=== PATIENT | male | born 1950 | race Caucasian/White ===

== ENCOUNTER 2025-10-29 17:06 | Inpatient (IN) ==
--- NOTE | 2025-10-29 20:31 | History & Physical Report ---
Date of Service October 29, 2025 Assessment & Plan (1) Diverticulitis of colon with perforation: (2) Colonic mass: (3) Lesion of lumbar spine: Plan Pt is a 75 yo male with a past medical hx of HLD only who presents as a direct transfer from [facility] in [place] for diverticulitis with small perforation and question of underlying neoplasm along with lytic bone lesion at L1 on 10/29. #Diverticulitis, complicated - CT abd/pelvis from OSH noted "severe colitis involving sigmoid colon, likely with a small perforation. Underlying neoplasm suspected." - thankfully, on admission pt is feeling well and stable - will do CTA chest to look for PE given suspected new metastatic cancer dx/other lesions - blood cx obtained by OSH on 10/29 ~ 17:00 -> to f/u on these - given dose of zosyn at OSH, will continue this - will do LR 125/hr overnight (2 bags) - pain meds; tylenol 1000mg IV q8h Prieto, morphine 1 mg q4h for breakthrough - general surgery consulted; appreciate recs #Possible colon mass - will do CTA chest to look for PE given suspected new metastatic cancer dx/other lesions - does have family hx of prostate, liver, and pancreas cancer - will hold off on oncology consult until further workup done - general surgery consulted #Lytic bone lesion at L1 - CT abd/pelvis from OSH noted "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." - pt denies significant back pain the last few months, maybe occasional soreness - does have family hx of prostate, liver, and pancreas cancer - will treat pain prn as above - ortho spine consulted, question if a biopsy can maybe be done VTE: hold overnight pending surgery eval in the morning/possible surg Admission and Anticipated Discharge Date Admission Date: October 29, 2025 History of Present Illness Chief Complaint: Diverticulitis with perf, colon mass Primary Care Provider: Los Villalta PA-C Pt is a 75 yo male with a past medical hx of HLD only who presents as a direct transfer from [facility] in [place] for diverticulitis with small perforation and question of underlying neoplasm along with lytic bone lesion at L1 on 10/29. On admission, pt is feeling relatively well. Pain level is a 2/10. He states symptoms started last weekend Saturday or Saturday with mild pain. He notes a hx of irritable bowel and states that he suspected he was constipated so he took 2 pills of Dulcolax on Saturday and Saturday and subsequently had diarrhea. He states he tries not to use laxatives because he knows he has significant diarrhea with them but wanted to trial it to see if it would help the pain. The stools were initially watery as expected but as the week went on contained more mucus. No blood in the stool. No nausea or vomiting. Abdominal pain ramped up on Saturday after taking the laxative but got more severe yesterday into today. He also has had decreased appetite the last few days. No prior hx diverticulitis. Last colonoscopy was maybe 6-7 years ago and was wnl per pt. Family hx of irritable bowel (unsure what kind) in his mom, liver cancer in his mom, pancreatic cancer in his dad, and prostate cancer in his brother. Lives at home with his and step-son in a 2 story home. No recent falls. He is active. He denies back pain. While at [facility] he received zosyn at 17:30. CT abd/pelvis with contrast; "severe colitis involving sigmoid colon, likely with a small perforation. Underlying neoplasm suspected. 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 OSH labs; lipase 34, lactic acid 0.7, Alk phosp 82, AST 12, ALT 24, Cr 0.9, Na 136, K 3.5 Ca 8.8, Albumin 2.6, AG 8, WBC 15, hemoglobin 14.3, platelet 283 Allergies Allergy/AdvReac Type Severity Reaction Status Date / Time No Known Allergies Allergy Verified 06/02/25 11:39 Home Medications Medication Instructions Recorded Confirmed Type famotidine 40 mg tablet 40 mg PO DAILY 06/02/25 06/02/25 History rosuvastatin 10 mg tablet 10 mg PO HS 06/02/25 10/30/25 History escitalopram oxalate 10 mg tablet 10 mg PO DAILY 10/30/25 10/30/25 History fluticasone propionate 50 1 spray intranasal HS 10/30/25 10/30/25 History mcg/actuation nasal spray,suspension Past Med/Surg History Problem List (Updated 10/29/25 @ 21:57 by Sandra E Breindel, DO) Lesion of lumbar spine Colonic mass Diverticulitis of colon with perforation Colitis Medical History Seasonal allergies Asthma Polyp of nasal cavity Chronic ethmoidal sinusitis Hypertrophy of nasal turbinates Chronic sphenoidal sinusitis Chronic maxillary sinusitis Surgical History S/P sinus surgery S/P hernia repair Family History Father Pancreatic cancer Mother Liver cancer Social History Smoking Status: Former smoker Tobacco Type: Cigarettes packs per day: 1; Smoking End Date: 40 years; Second Hand Exposure: No; Do You Dip or Chew Tobacco: No; Hx Alcohol Use: No Hx Substance Use: No Preferred Language: Luxembourgish Communication Ability: Effective Educational Recruiter Required: No Beliefs That Will Affect Care: None marital status: Current Living Situation: Spouse current occupational status: employed and retired current occupation: Works Part-Time Feels Safe at Home: Yes Safety Concerns: Feels Safe At This Time caffeine: Yes Dental Care, Regularly: Yes Gender Identity: Male Assistive Devices: Glasses Review of Systems Review of Systems: Per HPI. Physical Exam Physical Exam: General: Alert and oriented, no acute distress, very pleasant HEENT: Normocephalic, moist oral mucosa, Cardio: Regular rate and rhythm, no murmur, Resp: Lungs clear to auscultation b/l, no wheezes or rhonchi, GI: Distended but soft, faint bowel sounds Skin: Warm, pink, dry, Supervising Physician Co-Signing Physician Notes Attending addendum: I have physically seen this patient, have supervised the medical residents activities, and agree with the H&P unless as otherwise noted. Assessment and Plan: The patient is a 75-year-old male with past medical history including hyperlipidemia, who is transferred from [facility] emergency department to [facility] due to CT scan revealing diverticulitis with perforation, and a new lytic bone lesion at L1 on 10/29. Diverticulitis with perforation- CT scan abdomen pelvis from outside hospital revealed severe colitis involving sigmoid colon, likely small perforation. Underlying neoplasm suspected. Continue Zosyn 4.5 g IV every 8 hours, begun at the outside hospital. N.p.o. LR at 125 mL/h x 2 L Acetaminophen 1 g IV every 8 hours as needed for mild pain or fever Morphine sulfate 1 mg IV every 4 hours as needed for breakthrough pain Question of underlying colon mass Consult general surgery Lytic L1 invasion- As noted on CT abdomen pelvis from outside hospital Family history of prostate, liver and pancreatic cancer Consult orthopedic spine surgery, as noted 50% height loss of vertebral body. Resident Activity Tracking Resident Involvement: Resident Care Provided Care Provided: Adult Hospital Medicine
[2025-10-29] MEDS ORDERED: MELATONIN 3 MG TAB PO PRN (20:45)
[2025-10-29] MEDS ORDERED: ONDANSETRON INJ 2 MG/ML 2 ML VIAL IV PRN (20:45)
--- NOTE | 2025-10-29 20:54 | Surgery Consultation ---
Date of Consultation October 29, 2025 Assessment & Plan (1) Colitis: Patient has been admitted on the hospitalist service. From a surgical perspective recommend the following: Provide analgesics Provide antiemetics Keep patient n.p.o. Hydrate the patient with intravenous fluids Patient has received antibiotics in form of Zosyn at his previous facility would recommend continuing antibiotics Follow serial labs I did discuss with the patient that he does have colitis with what appears to be a perforation. I discussed with the patient that it would be preferable to not operate on the patient at this time as this would likely require at least a temporary colostomy and also be preferable to have an up-to-date colonoscopy as we are unsure if the patient has any malignant lesions in his colon that may have contributed to his perforation. It also appears as though the patient may have a lytic lesion/pathologic fracture of one of his vertebrae and the question is whether or not tissue can be obtained from this area that would help ascertain the diagnosis which will help guide the decision about potential abdominal surgery. I also explained to the patient that if he does clinically deteriorate an emergency operation may be required but I do not feel that this is required at this time At the time of my interview the patient was noted to be nontoxic-appearinghe was normotensive without tachycardia or fever Supervising Physician Co-Signing Physician Notes This case has been discussed with the surgical PA. I agree with this plan. History of Present Illness Reason for Consultation: Abdominal pain Attending Physician: Oliva Sommers MD History of Present Illness This is a 75-year-old male who presented to the hospital at [facility] in [place], [place] secondary to lower abdominal pain for approximately 5 days. The patient notes that the pain is across his lower abdomen in a bandlike fashion. He has never had such pain before. He admits he did not take his temperature at home but he did feel feverish with chills previously. He has not had any nausea or vomiting. Patient says that up until the time he had pain he had a normal appetite without any weight loss. He says that he had a colonoscopy in the past (he believes was greater than 5 years ago) and he notes that there is no concerning pathology noted on this study. He says that he did have a mucousy bowel movement earlier this morning but has not had any bright blood per rectum or hematochezia. He also has not had any melanotic stools. He notes that he has never had any prior abdominal surgeries with the exception of bilateral inguinal herniorrhaphies. He notes his most recent oral intake was at approximately 11:00 AM this morning. He has not had any falls or head injuries. He notes that when he feels well he leads a fairly active lifestyle. While at the hospital in the [place], the patient did have labs and imaging which I was able to review. CBC revealed white blood cell count was elevated 15.4. His hemoglobin and hematocrit 14.3 and 41.1. Platelet count was 283,000. Chemistry profile showed sodium and potassium are 136 and 3.5. BUN and creatinine were 15 and 0.9. Lactic acid level was not elevated at 0.7. Patient did undergo a CT scan of the abdomen pelvis that showed the patient had a 15 cm segment of sigmoid colon that appeared to be inflamed with some pockets of free air along the rectosigmoid junction. Patient was also noted to have a pathologic appearing compression fracture at the L1 vertebrae with concern for a lytic lesion. At the time of my interview the patient was resting comfortably in bed and he was in no distress. Allergies Allergy/AdvReac Type Severity Reaction Status Date / Time No Known Allergies Allergy Verified 06/02/25 11:39 Home Medications Medication Instructions Recorded Confirmed Type fluticasone propionate 50 See Rx Instructions .Route 05/06/25 06/02/25 Rx mcg/actuation nasal .COMPLEX #16 grams spray,suspension famotidine 40 mg tablet 40 mg PO DAILY 06/02/25 06/02/25 History rosuvastatin 10 mg tablet 10 mg PO DAILY 06/02/25 06/02/25 History Patient History Medical History Seasonal allergies Asthma Polyp of nasal cavity Chronic ethmoidal sinusitis Hypertrophy of nasal turbinates Chronic sphenoidal sinusitis Chronic maxillary sinusitis Surgical History S/P sinus surgery S/P hernia repair Family History Father Pancreatic cancer Mother Liver cancer Social History Smoking Status: Former smoker Tobacco Type: Cigarettes packs per day: 1; Smoking End Date: 40 years; Second Hand Exposure: No; Do You Dip or Chew Tobacco: No; Hx Alcohol Use: No Hx Substance Use: No Preferred Language: Upper Sorbian Communication Ability: Effective Agriculture Technician Required: No Beliefs That Will Affect Care: None marital status: Current Living Situation: Spouse current occupational status: employed and retired current occupation: Works Part-Time Feels Safe at Home: Yes Safety Concerns: Feels Safe At This Time caffeine: Yes Dental Care, Regularly: Yes Gender Identity: Male Assistive Devices: Glasses Review of Systems Review of Systems: All systems reviewed & are unremarkable except as noted in HPI & below Physical Exam Constitutional: WD/WN, vitals as above Eyes: Wears glasses ENMT: Ears: no hearing impairment Mouth: no oropharynx abnormality Neck: trachea midline Respiratory: normal respiratory effort; no respiratory distress and no labored breathing Cardiovascular: Rate/Rhythm: regular rate and regular rhythm Vessels: dorsalis pedis pulses present Gastrointestinal (Abdomen): Abdomen is noted to have mild distention. There is no signs of peritonitis such as rebound tenderness, guarding, or abdominal rigidity. Patient did have pain with palpation that appear to be greatest in the left lower quadrant. I did not appreciate any masses or hernias. Musculoskeletal: No calf tenderness Skin: no rashes Neurologic: moves all extremities Psychiatric: A+Ox3, euthymic affect PG Care Time/CCT Total # of Minutes Spent Total Time Spent with Patient: Total time spent is greater than 50% in coordination of care (as documented) at patient's floor/unit and/or counseling patient: Coding Level of Care Code 97898 INT INP/OBS CARE 3/75MIN Diagnoses Colitis K52.9
[2025-10-29] MEDS: LACTATED RINGER'S 1,000 ML IV SCH (21:01)
[2025-10-29] MEDS ORDERED: MoRPHine SULFATE 2 MG/ML CARP IV PRN (21:53)
[2025-10-29] MEDS: ACETAMINOPHEN 1,000 MG/100 ML VIAL IV SCH (23:23)
[2025-10-30] MEDS: PIPERACILLIN/TAZOBACTAM 4.5 GM/100 ML BAG IV SCH ×2 (00:50→20:29)
[2025-10-30 06:36] LABS: Hematocrit (blood only) 36.4 % (42.0-52.0); Hemoglobin 12.3 g/dL (14.0-18.0); Immature Granulocytes # (auto) 0.09 K/uL (0.01-0.20); Immature Granulocytes % (auto) 0.7 %; Mean Corpuscular Hemoglobin 30.4 pg (25.0-34.0); Mean Corpuscular Volume 89.9 fL (80.0-100.0); Platelet Count 263 K/uL (130-400); RDW Standard Deviation 43.8 fL (36.4-46.3); Red Blood Count 4.05 M/uL (4.70-6.10); White Blood Count 13.71 K/ul (4.8-10.8)
[2025-10-30 08:24] LABS: Albumin Level 3.2 gm/dl (3.4-5.0); Anion Gap 10.0 (3-11); Bilirubin,Total 1.4 mg/dl (0.2-1.0); Calcium 8.6 mg/dl (8.6-10.3); Carbon Dioxide 25.0 mmol/L (21-32); Chloride 105.0 mmol/L (98-107); Potassium 4.1 mmol/L (3.5-5.1); Sodium 140.0 mmol/L (136-145)
--- NOTE | 2025-10-30 08:24 | Electrocardiogram Report ---
Test Reason : Blood Pressure : */* mmHG Vent. Rate : 86 BPM Atrial Rate : 86 BPM P-R Int : 176 ms QRS Dur : 100 ms QT Int : 370 ms P-R-T Axes : -8 -9 -12 degrees QTcB Int : 442 ms Normal sinus rhythm Normal ECG No previous ECGs available Confirmed by Niles Basurto ([id number]) on 10/30/2025 8:24:09 AM Referred By: Oliva Sommers Confirmed By: Niles Basurto
[2025-10-30 08:30] LABS: Alanine Aminotransferase 11.0 U/L (7-52); Albumin Globulin Ratio 1.0 (0.9-2); Alkaline Phosphatase 69.0 U/L (34-104); Blood Urea Nitrogen 15.0 mg/dl (6-23); Creatinine Clr Calc Pharmacy 97.8 ml/min; Globulin 3.3 gm/dl (2.5-4.0); Glucose 106.0 mg/dl (70-99(Fasting)); Total Protein 6.5 gm/dl (6.0-8.3)
[2025-10-30] MEDS: D5W AND NSS 1,000 ML IV SCH (08:59)
[2025-10-30] MEDS: OPTIRAY 320 125ml IV ONE (11:52)
--- NOTE | 2025-10-30 12:54 | Hospitalist Progress Note ---
Date of Service October 30, 2025 Assessment & Plan (1) Diverticulitis of colon with perforation: Plan: Currently n.p.o. with IV fluids. Appreciate general surgery consultation and recommendations. Continue intravenous Zosyn, day 2. (2) Colonic mass: Plan: Eventually will need colonoscopy and biopsy. CEA level is pending (3) Lesion of lumbar spine: Plan: Apparent lytic lesion seen involving L1 on imaging. This will need further evaluation. He is currently asymptomatic however Plan To be determined Admission and Anticipated Discharge Date Admission Date: October 29, 2025 Subjective Alert and oriented. No distress. He remains n.p.o. on IV fluids and IV Zosyn. Appreciate surgery consultation and recommendations. Chest CTA report is pending. IV fluids have been tapered down. Review of Systems 2 Review of Systems: Constitutionalno fever or chills ENTno blurred vision, no double vision, no epistaxis, no sore throat Respiratoryno cough, no wheezing, no shortness of breath Cardiacno palpitations, no chest pain, no syncope [place]udonne nausea, vomiting, diarrhea, melena, hematochezia GUno urinary retention, no urinary incontinence, no dysuria, no hematuria Musculoskeletalno joint pain, no muscle tenderness Skinno bruising, no rashes, no pruritus Neurono isolated weakness, no paresthesia, no weakness Psychno depression, no anxiety Physical Exam 2 Physical Exam: General-alert and oriented x3, no fever, no chills HEENT-head atraumatic and normocephalic, pupils equal and reactive to light, extraocular muscles intact Neck-no lymphadenopathy or thyromegaly, trachea midline Chest-clear to auscultation. No rales, wheezing or rhonchi Cardiac-regular rate and rhythm, normal S1 and S2 Abdomen-bowel sounds are hypoactive but present. Tenderness to palpation in the lower midline and left lower quadrant. No rebound or guarding. Nondistended Extremities-no cyanosis, clubbing, or edema Neuro-cranial nerves II through XII intact, motor and sensory function within normal limits, strength symmetrical, no focal deficits Psych-normal affect, normal mood Results & Data Results & Data Vital Signs (Past 12 Hours) Vital Signs Temp Pulse Pulse Resp BP Pulse Ox O2 Del Method 10/30/25 12:28 36.5 C 75 18 147/81 H 96 Room Air 10/30/25 12:08 72 10/30/25 09:29 36.4 C L 67 18 128/77 97 Room Air 10/30/25 02:19 36.7 C 74 18 119/70 95 Room Air Laboratory Results 10/30/25 05:29 10/30/25 05:29 PG Care Time/CCT Total # of Minutes Spent Total Time Spent with Patient: Total time spent is greater than 50% in coordination of care (as documented) at patient's floor/unit and/or counseling patient: Coding Level of Care Code 26399 SUB INP/OBS CARE MIN Diagnoses Diverticulitis of colon with perforation K57.20 Colonic mass K63.89 Lesion of lumbar spine M89.9
--- NOTE | 2025-10-30 13:22 | Surgery Progress Note ---
Date of Service October 30, 2025 Assessment & Plan (1) Colitis: Plan Pt with evidence for sigmoid colitis, reading radiologist questions a malignant process due to an incidentally identified lytic appearing lumbar fracture as well. Awaiting image availability in PACS for review. For now, no acute surgical intervention Continue IV abx at this time IVF Ambulate as tolerated and recommend he be started on chemical DVT ppx If pt continues to improve to appropriate for discharge, he will need an outpatient colonoscopy Admission and Anticipated Discharge Date Admission Date: October 29, 2025 Subjective I have seen this pt this am on his way to CT for CTA ordered by medicine. Pt denies nausea, vomiting or abdominal pain this am. States he feels better than when he came in. Physical Exam Constitutional: average body habitus; not ill appearing, not disheveled, not in distress and not diaphoretic Respiratory: normal respiratory effort; no respiratory distress, no labored breathing and does not use accessory muscles Cardiovascular: Rate/Rhythm: regular rate; not tachycardic Gastrointestinal (Abdomen): Inspection/Auscultation: abdomen normal to inspection; abdomen not distended Percussion/Palpation: + abdomen tender (minimal TTP lower abdomen) and abdomen soft; no guarding Results & Data Vital Signs (Past 12 Hours) Vital Signs Temp Pulse Pulse Resp BP Pulse Ox O2 Del Method 10/30/25 12:28 36.5 C 75 18 147/81 H 96 Room Air 10/30/25 12:08 72 10/30/25 09:29 36.4 C L 67 18 128/77 97 Room Air 10/30/25 02:19 36.7 C 74 18 119/70 95 Room Air PG Care Time/CCT Total # of Minutes Spent Total Time Spent with Patient: Total time spent is greater than 50% in coordination of care (as documented) at patient's floor/unit and/or counseling patient: Coding Level of Care Code 50580 SUB INP/OBS CARE 12/26MIN Diagnoses Colitis K52.9
--- NOTE | 2025-10-30 14:16 | CT Scan Report ---
INDICATION: Chest pain, shortness of breath COMPARISON: None TECHNIQUE: CT images of the chest were obtained. 3D CT angiogram was generated from the axial data set. Dose reduction according to patient size and/or automated exposure control techniques have been utilized for this exam. MIP (Maximum Intensity Pixel) images were utilized. FINDINGS: AXIAL IMAGES: LUNGS: No focal consolidations. No worrisome pulmonary nodules. PLEURA: There is no pleural effusion. MEDIASTINUM/SILKE: No significant lymphadenopathy. CARDIAC: The heart is normal in size. Coronary artery calcifications. AORTA: No aneurysm. LIMITED ABDOMEN: Normal size adrenal glands. Cholelithiasis.Left renal cortical cyst measures 1.6 cm. BONES: Bony thorax is intact. OTHER: Unremarkable. CTA: No evidence of pulmonary embolism. IMPRESSION: No CT evidence of pulmonary embolism. No focal consolidations. Cholelithiasis. Electronically signed by Oneal Dallas 10-30-2025 2:13 PM
[2025-10-30] MEDS ORDERED: LORazepam Inj 0.5 MG in SYRINGE 0.25 ML IV PRN (17:04)
[2025-10-30] MEDS ORDERED: Nursing to Pharmacy Communication SCH (17:30)
[2025-10-30] MEDS: FLUTICASONE PROPIONATE NA SPR 16 GM BTL SCH (20:28)
--- NOTE | 2025-10-31 05:14 | Billing Data ---
Date of Service October 31, 2025 Coding Level of Care Code 57210 INT INP/OBS CARE
[2025-10-31 06:44] LABS: Hematocrit (blood only) 35.2 % (42.0-52.0); Hemoglobin 11.9 g/dL (14.0-18.0); Immature Granulocytes # (auto) 0.05 K/uL (0.01-0.20); Immature Granulocytes % (auto) 0.5 %; Mean Corpuscular Hemoglobin 30.4 pg (25.0-34.0); Mean Corpuscular Volume 90.0 fL (80.0-100.0); Platelet Count 291 K/uL (130-400); RDW Standard Deviation 43.9 fL (36.4-46.3); Red Blood Count 3.91 M/uL (4.70-6.10); White Blood Count 9.49 K/ul (4.8-10.8)
[2025-10-31 07:23] LABS: Alanine Aminotransferase 12.0 U/L (7-52); Albumin Globulin Ratio 0.9 (0.9-2); Albumin Level 3.0 gm/dl (3.4-5.0); Alkaline Phosphatase 71.0 U/L (34-104); Anion Gap 7.0 (3-11); Bilirubin,Total 0.8 mg/dl (0.2-1.0); Blood Urea Nitrogen 11.0 mg/dl (6-23); Calcium 8.5 mg/dl (8.6-10.3); Carbon Dioxide 29.0 mmol/L (21-32); Chloride 104.0 mmol/L (98-107); Creatinine Clr Calc Pharmacy 101.9 ml/min; Globulin 3.5 gm/dl (2.5-4.0); Glucose 108.0 mg/dl (70-99(Fasting)); Potassium 3.5 mmol/L (3.5-5.1); Sodium 140.0 mmol/L (136-145); Total Protein 6.5 gm/dl (6.0-8.3)
--- NOTE | 2025-10-31 09:48 | Surgery Progress Note ---
<Statement entered by Zain Hawk, - 10/31/25 18:22> I have seen and examined this patient with the surgical PA. I agree with this plan. Date of Service October 31, 2025 Assessment & Plan (1) Diverticulitis of colon with perforation: (2) Colitis: (3) Colonic mass: Plan Patient's abdominal pain has improved greatly, white blood cell count has trended to normal, and he has remained afebrile on Zosyn. We feel it be reasonable to try to advance his diet to clear liquids and continue to observe his white blood cell count, serial abdominal exams, and temps. Patient is concerned about his lytic lesion to the lumbar spine, awaiting orthopedics by spine consult recommendations, but I explained to the patient that we will eventually need tissue diagnosis to rule in or rule out neoplasm, from the lytic lesion to the spine and/or the colon. I would recommed reaching out to interventional radiology tomorrow to discuss if they are able to perform a biopsy of the lytic lesion to the spine. After his current bout of acute colitis has resolved he will need a formal colonoscopy and possible biopsy. Patient expressed understanding. Remainder of his care per the primary hospitalist team, general surgery will continue to follow, would recommend pharmacologic DVT prophylaxis with heparin or Lovenox due to the concerns for possible neoplasm. Admission and Anticipated Discharge Date Admission Date: October 29, 2025 Subjective Patient currently states that he feels well, states that his abdominal pain has nearly resolved, but is still present, mild, localized to the lower quadrants bilaterally. Patient states that his abdominal pain seemed worse with movement and with straining to void, but denies any dysuria or hematuria. Patient has remained n.p.o. for bowel rest, he denies any nausea or vomiting, does admit to passing flatus but no bowel movement. Patient has remained hemodynamically sta ble, afebrile, nontachycardic, white blood cell count has trended to normal, today is 9.4, down from yesterday at 13.7, on Zosyn day 3. Patient does have multiple questions regarding his lytic lesion to his lumbar spine, I explained that we must obtain a tissue biopsy in order to rule in or rule out metastatic disease Physical Exam Physical Exam: Gen: Awake and alert, resting comfortably in bed in NAD CV: RRR PULM: non-labored breathing Abd: Abd soft, obese, non-tender, non-distended ext: no edema to bilateral lower ext, SCDs in place, non-tender, feet warm and well perfused Results & Data Vital Signs (Past 12 Hours) Vital Signs Temp Pulse Pulse Resp BP Pulse Ox O2 Del Method 10/31/25 08:41 36.6 C 67 18 139/85 94 Room Air 10/31/25 03:47 36.5 C 68 19 123/80 95 Room Air 10/30/25 23:40 36.6 C 70 16 141/75 H 95 Room Air 10/30/25 23:00 77 PG Care Time/CCT Total # of Minutes Spent Total Time Spent with Patient: Total time spent is greater than 50% in coordination of care (as documented) at patient's floor/unit and/or counseling patient:35 minutes Coding [place] [address] SUB INP/OBS CARE 2/35MIN Patient Type Established Medical Decision Making Moderate Complexity Diagnoses Diverticulitis of colon with perforation K57.20 Colitis K52.9 Colonic mass K63.89
--- NOTE | 2025-10-31 12:05 | CT Scan Report ---
EXAM: CT Abdomen and Pelvis Without Intravenous Contrast INDICATION: Perforated diverticulitis TECHNIQUE: Axial computed tomography images of the abdomen and pelvis without intravenous contrast. Sagittal and coronal reformatted images were created and reviewed. This CT exam was performed using one or more of the following dose reduction techniques: automated exposure control, adjustment of the mA and/or kV according to patient size, and/or use of iterative reconstruction technique. COMPARISON: No relevant prior studies available. FINDINGS: Limitations: None. Lung bases: No abnormality noted. Pleural space: No visualized pleural effusion or pneumothorax. Heart: No abnormality noted. Mediastinum: No abnormality noted. ABDOMEN: Liver: Lack of intravenous contrast limits detection of some masses. No abnormality noted. Gallbladder and bile ducts: The gallbladder is distended and contains at least 3 stones. No biliary gas or ductal dilatation. Pancreas: There is a 1.1 x 2.8 cm tubular hypodensity in the uncinate process. This appears to track to and may be contiguous with the common bile duct. No pancreatic inflammation. No visible mass. No pancreatic calcification or gas. Spleen: No acute abnormality noted. Adrenals: No acute abnormality noted. Kidneys and ureters: Simple left renal cysts. No follow-up of these simple cysts is necessary. Right kidney appears normal. Stomach and bowel: Extensive colonic diverticulosis noted most numerous in the sigmoid colon. Approximate 10 cm segment of moderately inflamed and thickened sigmoid colon preferentially extending into the mesentery. No evidence of perforation or obstruction. PELVIS: Appendix: Well seen and appears normal. Bladder: The urinary bladder is incompletely distended and appears moderately thickened and inflamed. It is displaced to the right by the phlegmon and sigmoid colon. Reproductive: No abnormalities noted. ABDOMEN and PELVIS: Intraperitoneal space: Small amounts of fluid in the pelvis. No organized or drainable collection. No free air. Bones/joints: No acute changes. Soft tissues: Fat-containing right inguinal hernia noted. Vasculature: No abdominal aortic aneurysm. Lymph nodes: No pathologically enlarged lymph nodes. IMPRESSION: 1. Acute phlegmonous sigmoid diverticulitis without perforation or abscess. 2. Cystitis. 3. Distended gallbladder with stones. 4. Possible dilated duct in the uncinate process of the pancreas. Pancreatic protocol CT recommended when able. ACT 112: N/A Electronically signed by Desi Moreland 10-31-2025 12:04 PM
--- NOTE | 2025-10-31 14:45 | Hospitalist Progress Note ---
Date of Service October 31, 2025 Assessment & Plan (1) Diverticulitis of colon with perforation: Plan: Clear liquids have been started by surgery and IV fluids tapered down. Appreciate general surgery consultation and recommendations. Continue intravenous Zosyn, day 3. CT scan of the abdomen and pelvis done today, October 31, reveals no evidence of perforation (2) Colonic mass: Plan: Eventually will need colonoscopy and biopsy. CEA level is normal (3) Lesion of lumbar spine: Plan: Apparent lytic lesion seen involving L1 on imaging. Lumbar MRI scan ordered and pending. He is currently asymptomatic. Plan Hopeful discharge to home within the next day or 2 Admission and Anticipated Discharge Date Admission Date: October 29, 2025 Subjective Alert and oriented. He has been seen by general surgery and is now on a clear liquid diet. CT scan of the abdomen and pelvis done today, October 31, shows no evidence of perforation. Lumbar MRI scan is pending to evaluate the possible L1 lytic lesion. He remains on intravenous Zosyn. CEA level is normal at 1.3. IV fluids have been tapered down. Review of Systems 2 Review of Systems: Constitutionalno fever or chills ENTno blurred vision, no double vision, no epistaxis, no sore throat Respiratoryno cough, no wheezing, no shortness of breath Cardiacno palpitations, no chest pain, no syncope Dieudonne nausea, vomiting, diarrhea, melena, hematochezia GUno urinary retention, no urinary incontinence, no dysuria, no hematuria Musculoskeletalno joint pain, no muscle tenderness Skinno bruising, no rashes, no pruritus Neurono isolated weakness, no paresthesia, no weakness Psychno depression, no anxiety Physical Exam 2 Physical Exam: General-alert and oriented x3, no fever, no chills HEENT-head atraumatic and normocephalic, pupils equal and reactive to light, extraocular muscles intact Neck-no lymphadenopathy or thyromegaly, trachea midline Chest-clear to auscultation. No rales, wheezing or rhonchi Cardiac-regular rate and rhythm, normal S1 and S2 Abdomen-bowel sounds are hypoactive but present. Tenderness to palpation in the lower midline and left lower quadrant has lessened. No rebound or guarding. Nondistended Extremities-no cyanosis, clubbing, or edema Neuro-cranial nerves II through XII intact, motor and sensory function within normal limits, strength symmetrical, no focal deficits Psych-normal affect, normal mood Results & Data Results & Data Vital Signs (Past 12 Hours) Vital Signs Temp Pulse Pulse Resp BP Pulse Ox O2 Del Method 10/31/25 11:15 36.5 C 68 18 154/90 H 95 Room Air 10/31/25 10:40 62 10/31/25 08:41 36.6 C 67 18 139/85 94 Room Air 10/31/25 03:47 36.5 C 68 19 123/80 95 Room Air Laboratory Results 10/31/25 04:44 10/31/25 04:44 PG Care Time/CCT Total # of Minutes Spent Total Time Spent with Patient: Total time spent is greater than 50% in coordination of care (as documented) at patient's floor/unit and/or counseling patient: Coding Level of Care Code 29223 SUB INP/OBS CARE MIN Diagnoses Diverticulitis of colon with perforation K57.20 Colonic mass K63.89 Lesion of lumbar spine M89.9
[2025-10-31] MEDS: GADOBUTROL 30ML VIAL IV ONE (16:44)
--- NOTE | 2025-10-31 17:51 | Magnetic Resonance Report ---
EXAM: MR lumbar spine wo/w con CLINICAL HISTORY: Possible bone lesion TECHNIQUE: Different pulse sequences were performed in different planes for the lumbar spine without and with contrast. Images were sent through PACs for diagnostic interpretation. COMPARISON: No previous studies are available for comparison. FINDINGS: Vertebral Alignment: Straightening of the usual lumbar lordosis with minimal retrolisthesis of L3 over L4 and L4 over L5, likely degenerativel. No evidence of scoliosis is observed. Vertebral Bodies Age-related marrow signal changes are noted. L1 vertebral body shows height reduction with anterior wedging, most consistent with old post-traumatic deformity; no acute fracture line Multiple vertebral endplate erosions (VEPs) associated with underlying marrow edema and post-contrast enhancement at the highly affected levels (T12?L1, L1?L2, L4?L5). Intervertebral Discs Multilevel discitis/osteodiscitis-related changes at T12?L1, L1?L2, and L4?L5 evidenced by: multifocal bright T2 signal within degenerated discs, endplate irregularities with small erosions, adjacent marrow edema as well as post-contrast disc and endplate enhancement. L2?L3 and L3?L4 levels show similar but milder inflammatory changes Paraspinal Soft Tissues No paraspinal or epidural abscess. No significant prevertebral soft-tissue swelling. [id number] analysis: T12-L1: There is no focal disc pathology, spinal canal stenosis, or neural foraminal stenosis. L1-L2: There is a diffuse disc bulge measuring 2.8mm, causing mild spinal canal and neural foraminal stenosis. L2-L3: There is a diffuse disc bulge measuring 7.5 mm, causing modertae spinal canal and neural foraminal stenosis. L3-L4: There is a diffuse disc bulge with superadded bi-froaminal disc protrusions measuring about 7mm on the left side, causing moderate foraminal stenosis, and 3.5mm on the right, causing mild foraminal stenosis L4-L5: There is a non-symmetrical broad base disc protrusion causing moderate spinal canal stenosis measuring about 6.9mm on the left side, causing moderate foraminal stenosis, and 5.5 mm on the right, causing moderate foraminal stenosis L5-S1: There is a diffuse disc bulge measuring 3.5 mm, causing mild spinal canal and neural foraminal stenosis. Multilevel facet arthropathy with associated small facet joint effusions. Spinal Cord and Nerve Roots: Conus medullaris terminates at the L1 level without abnormality. Nerve roots appear unremarkable bilaterally. The lower thoracic spinal cord, conus medullaris, and cauda equina nerve roots are unremarkable. IMPRESSION: 1. 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 2. Milder, similar changes at L2?L3 and L3?L4, likely representing early or less active inflammatory progression. 3. L1 vertebral body height reduction with anterior wedging, most consistent with old healed traumatic deformity, 4. Multilevel lumbar spondylosis with disc bulges, facet arthropathies, and facet joint effusions Electronically signed by Robi Butcher 10-31-2025 5:51 PM
--- NOTE | 2025-10-31 18:15 | Communication Note ---
Date of Service: October 31, 2025 Lumbar MRI scan is negative for evidence of metastatic disease. Radiology read the report as possible discitis but clinically he does not have active lumbar discitis. No evidence of diverticular abscess. Diet has been advanced further to full liquids. Hopefully he can go home tomorrow, November 01, on an oral antibiotic.
[2025-10-31 19:32] VITALS: RESP 18
[2025-10-31] MEDS: LORazepam Inj 0.5 MG in SYRINGE 0.25 ML IV PRN (20:21)
[2025-11-01 06:47] LABS: Hematocrit (blood only) 34.9 % (42.0-52.0); Hemoglobin 12.1 g/dL (14.0-18.0); Immature Granulocytes # (auto) 0.03 K/uL (0.01-0.20); Immature Granulocytes % (auto) 0.5 %; Mean Corpuscular Hemoglobin 31.1 pg (25.0-34.0); Mean Corpuscular Volume 89.7 fL (80.0-100.0); Platelet Count 306 K/uL (130-400); RDW Standard Deviation 42.9 fL (36.4-46.3); Red Blood Count 3.89 M/uL (4.70-6.10); White Blood Count 6.30 K/ul (4.8-10.8)
[2025-11-01 07:23] LABS: Alanine Aminotransferase 11.0 U/L (7-52); Albumin Globulin Ratio 0.9 (0.9-2); Albumin Level 2.9 gm/dl (3.4-5.0); Alkaline Phosphatase 65.0 U/L (34-104); Anion Gap 7.0 (3-11); Bilirubin,Total 0.5 mg/dl (0.2-1.0); Blood Urea Nitrogen 7.0 mg/dl (6-23); Calcium 8.2 mg/dl (8.6-10.3); Carbon Dioxide 27.0 mmol/L (21-32); Chloride 104.0 mmol/L (98-107); Creatinine Clr Calc Pharmacy 127.9 ml/min; Globulin 3.4 gm/dl (2.5-4.0); Glucose 101.0 mg/dl (70-99(Fasting)); Potassium 3.3 mmol/L (3.5-5.1); Sodium 138.0 mmol/L (136-145); Total Protein 6.3 gm/dl (6.0-8.3)
[2025-11-01 07:40] VITALS: TEMP 98.2
[2025-11-01] MEDS: POTASSIUM CHLORIDE / WTR 10 MEQ/100 ML PLCT IV SCH (08:11)
[2025-11-01] MEDS: ESCITALOPRAM OXALATE 10 MG TAB PO SCH (12:02)
--- NOTE | 2025-11-01 12:49 | Orthopedic Consultation ---
Date of Service November 01, 2025 Assessment & Plan (1) Compression fracture of L1 vertebra with routine healing: * Case/imaging reviewed and discussed with Dr Helms * Imaging consistent with chronic L1 compression fracture, no lytic lesion appreciated. Multilevel degenerative changes. Also with findings suggestive of multilevel discitis but without clinical exam findings * Recommend continued observation, no acute intervention indicated. No reported symptoms or exam findings consistent with infection. * [facility] does not perform biopsies for discitis/lesions at this institution and would require transfer if needed. Regardless, given clinical picture, would not recommend. * Weight bearing status: Full activity as tolerated * Daily treatment: Physical Therapy/ Occupational Therapy per protocol * Pain control * Disposition: Home * Remainder care per primary team * Follow-up in office approximately 2 weeks * * Patient seen and examined, as noted above, I do not think the patient has discitis based on the fact that he has no significant symptomatology in the lower lumbar spine. Age of compression fracture is chronic. I recommended to the patient that he do follow-up in the office in the next 2 to 3 weeks to see if there is any change in his lumbar spine which only has intermittent chronic lumbosacral pain. History of Present Illness Reason for Consultation: Questional lumbar spine lesion Requesting Physician: . Attending Physician: Bobby Reeves MD . Patient is a 75y/o male with imaging findings for questionable lumbar bony lesion. PMH including HLD. Presents to hospital with lower abdominal pain. Patient presented to OSH, CT at that site consistent with diverticulitis with small perforation, also per report question of underlying lytic bone lesion at L1, these images are not available for review. Patient was admitted to hospital medicine team with general surgery consult for management of diverticulitis. [facility] consulted for evaluation regarding reported imaging findings of L1 lytic lesion. Lumbar MRI was obtained, evidence of chronic appearing L1 compression fracture as well as generalized degenerative changes, however lytic lesion not appreciated, also noted was questionable discitis at multiple levels. At time of exam patient sitting in bed, no acute distress. Reports mild and improving lower abdominal pain, otherwise denies low back pain or radicular symptoms down either leg. No assistive devices at baseline. Reports that he is "thrown out"his back over the years but does not recall a specific fracture or injury. Allergies Allergy/AdvReac Type Severity Reaction Status Date / Time No Known Allergies Allergy Verified 06/02/25 11:39 Home Medications Medication Instructions Recorded Confirmed Type famotidine 40 mg tablet 40 mg PO DAILY 06/02/25 06/02/25 History rosuvastatin 10 mg tablet 10 mg PO HS 06/02/25 10/30/25 History escitalopram oxalate 10 mg tablet 10 mg PO DAILY 10/30/25 10/30/25 History fluticasone propionate 50 1 spray intranasal HS 10/30/25 10/30/25 History mcg/actuation nasal spray,suspension Past Med/Surg History Problem List (Updated 11/01/25 @ 12:46 by Seamus Euceda PA-C) Compression fracture of L1 vertebra with routine healing Lesion of lumbar spine Colonic mass Diverticulitis of colon with perforation Colitis Medical History Seasonal allergies Asthma Polyp of nasal cavity Chronic ethmoidal sinusitis Hypertrophy of nasal turbinates Chronic sphenoidal sinusitis Chronic maxillary sinusitis Surgical History S/P sinus surgery S/P hernia repair Family History Father Pancreatic cancer Mother Liver cancer Social History Smoking Status: Former smoker Tobacco Type: Cigarettes packs per day: 1; Smoking End Date: 40 years; Second Hand Exposure: No; Do You Dip or Chew Tobacco: No; Hx Alcohol Use: No Hx Substance Use: No Preferred Language: Sami Communication Ability: Effective [employer] Required: No Beliefs That Will Affect Care: None marital status: Current Living Situation: Spouse current occupational status: employed and retired current occupation: Works Part-Time Feels Safe at Home: Yes Safety Concerns: Feels Safe At This Time caffeine: Yes Dental Care, Regularly: Yes Gender Identity: Male Assistive Devices: Stair Lift Review of Systems All systems reviewed & are unremarkable except as noted in HPI & below. Physical Exam . * General: Alert and oriented, no acute distress * Constitutional: well-developed, well-nourished. * Respiratory: Normal respiratory effort, no distress * Gastrointestinal: No tenderness to palpation, no rigidity or guarding. * Skin: No rash or lesion. * Neurologic: Grossly normal * Musculoskeletal: Lumbar spine region without obvious deformity or overlying skin changes. No tenderness midline lumbar spine, paraspinal, b/l buttock or LE. Lumbar flexion/extension and rotation ROM without pain. AROM b/l hip flexion, knee flexion/extension, ankle flexion/extension intact. Strength 5/5 bilaterally. Sensation intact plantar/dorsal foot. Brisk capillary refill. Results & Data Results & Data Laboratory Results . Diagnostic Findings . Lumbar Spine MRI 10/31/25 13:12 EXAM: MR lumbar spine wo/w con CLINICAL HISTORY: Possible bone lesion TECHNIQUE: Different pulse sequences were performed in different planes for the lumbar spine without and with contrast. Images were sent through PACs for diagnostic interpretation. COMPARISON: No previous studies are available for comparison. FINDINGS: Vertebral Alignment: Straightening of the usual lumbar lordosis with minimal retrolisthesis of L3 over L4 and L4 over L5, likely degenerativel. No evidence of scoliosis is observed. Vertebral Bodies Age-related marrow signal changes are noted. L1 vertebral body shows height reduction with anterior wedging, most consistent with old post-traumatic deformity; no acute fracture line Multiple vertebral endplate erosions (VEPs) associated with underlying marrow edema and post-contrast enhancement at the highly affected levels (T12?L1, L1?L2, L4?L5). Intervertebral Discs Multilevel discitis/osteodiscitis-related changes at T12?L1, L1?L2, and L4?L5 evidenced by: multifocal bright T2 signal within degenerated discs, endplate irregularities with small erosions, adjacent marrow edema as well as post-contrast disc and endplate enhancement. L2?L3 and L3?L4 levels show similar but milder inflammatory changes Paraspinal Soft Tissues No paraspinal or epidural abscess. No significant prevertebral soft-tissue swelling. [id number] analysis: T12-L1: There is no focal disc pathology, spinal canal stenosis, or neural foraminal stenosis. L1-L2: There is a diffuse disc bulge measuring 2.8mm, causing mild spinal canal and neural foraminal stenosis. L2-L3: There is a diffuse disc bulge measuring 7.5 mm, causing modertae spinal canal and neural foraminal stenosis. L3-L4: There is a diffuse disc bulge with superadded bi-froaminal disc protrusions measuring about 7mm on the left side, causing moderate foraminal stenosis, and 3.5mm on the right, causing mild foraminal stenosis L4-L5: There is a non-symmetrical broad base disc protrusion causing moderate spinal canal stenosis measuring about 6.9mm on the left side, causing moderate foraminal stenosis, and 5.5 mm on the right, causing moderate foraminal stenosis L5-S1: There is a diffuse disc bulge measuring 3.5 mm, causing mild spinal canal and neural foraminal stenosis. Multilevel facet arthropathy with associated small facet joint effusions. Spinal Cord and Nerve Roots: Conus medullaris terminates at the L1 level without abnormality. Nerve roots appear unremarkable bilaterally. The lower thoracic spinal cord, conus medullaris, and cauda equina nerve roots are unremarkable. IMPRESSION: 1. 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 2. Milder, similar changes at L2?L3 and L3?L4, likely representing early or less active inflammatory progression. 3. L1 vertebral body height reduction with anterior wedging, most consistent with old healed traumatic deformity, 4. Multilevel lumbar spondylosis with disc bulges, facet arthropathies, and facet joint effusions Electronically signed by Robi Butcher 10-31-2025 5:51 PM PG Care Time/CCT Total # of Minutes Spent Total Time Spent with Patient: Total time spent is greater than 50% in coordination of care (as documented) at patient's floor/unit and/or counseling patient: [place] [address] IN/OBS CONSULT LVL 3,45M Patient Type New Medical Decision Making Low Complexity Diagnoses Compression fracture of L1 vertebra with routine healing S32.010D
--- NOTE | 2025-11-01 13:00 | Surgery Progress Note ---
Date of Service November 01, 2025 Assessment & Plan (1) Diverticulitis of colon with perforation: Plan: Pt here w/ diverticulitis of colon without drainable abscess WBC 6. Afebrile Overall improving Tolerating diet advancement Stable for d/c when okay by medicine. complete course of PO abx Recommend outpt colonoscopy in 6-8 weeks when inflammation settles Admission and Anticipated Discharge Date Admission Date: October 29, 2025 Supervising Physician Co-Signing Physician Notes I have seen this patient with the surgical PA. I agree with this plan Subjective Patient feeling better. Offers no complaints. Tolerating diet advancement Results & Data Vital Signs (Past 12 Hours) Vital Signs Temp Pulse Pulse Resp BP Pulse Ox O2 Del Method 11/01/25 11:39 98.2 F 72 18 181/102 H 97 Room Air 11/01/25 09:09 62 11/01/25 07:38 98.2 F 69 18 163/96 H 97 Room Air 11/01/25 02:51 98.1 F 68 18 140/85 95 Room Air PG Care Time/CCT Total # of Minutes Spent Total Time Spent with Patient: Total time spent is greater than 50% in coordination of care (as documented) at patient's floor/unit and/or counseling patient: Coding Level of Care Code 90003 SUB INP/OBS CARE 12/26MIN Diagnoses Diverticulitis of colon with perforation K57.20
[2025-11-01 14:34] LABS: Lipase 25.0 U/L (11-82)
[2025-11-01 15:27] VITALS: PULSE 70
[2025-11-01 15:41] VITALS: O2SAT 97
--- NOTE | 2025-11-01 15:46 | Discharge Summary ---
Discharge Summary Date of Service November 01, 2025 Principal Dx & Hospital Course #1 = Principal Diagnosis (1) Diverticulitis of colon with perforation: (2) Colonic mass: (3) Lesion of lumbar spine: Plan Los Beck were admitted to [facility] from October 29 - November 01, 2025 due to abdominal pain. He was diagnosed with acute sigmoid diverticulitis treated with intravenous Zosyn. He will be discharged with Augmentin on discharge for total 14 day course due to phlegmon seen on CT. Recommend follow up with gastroenterology for colonoscopy in 4-6 weeks. Recommend a high fiber diet on discharge. He was incidentally found to have 1.1 x 2.8cm tubular hypodensity and dilated pancreatic duct in the uncinate process of the pancreas on CT. Recommend pancreatic protocol CT as follow up once improved as an outpatient. Possibly this represent a stone although lipase, liver function tests are normal and you have clinically improved therefore low suspicion this was causing any of your acute symptoms. Lumbar spine MRI was also concerning for possible discitis however you have no symptoms or signs to suggest this and blood culture at [facility] are preliminary negative at 48 hours therefore do not suspect you have this. Recommend follow up with orthopedic spine as needed only if you back pain is getting worse. Suspect most likely this is degenerative joint disease in your spine rather than infection. Notes For Next Care Provider Routine follow up - consider pancreatic protocol CT Refer to gastroenterology for colonoscopy in 4-6 weeks Medication Changes From Visit Augmentin for diverticultitis Admission HPI Per Admitting Provider Pt is a 75 yo male with a past medical hx of HLD only who presents as a direct transfer from [facility] in [place] for diverticulitis with small perforation and question of underlying neoplasm along with lytic bone lesion at L1 on 10/29. On admission, pt is feeling relatively well. Pain level is a 2/10. He states symptoms started last weekend Saturday or Saturday with mild pain. He notes a hx of irritable bowel and states that he suspected he was constipated so he took 2 pills of Dulcolax on Saturday and Saturday and subsequently had diarrhea. He states he tries not to use laxatives because he knows he has significant diarrhea with them but wanted to trial it to see if it would help the pain. The stools were initially watery as expected but as the week went on contained more mucus. No blood in the stool. No nausea or vomiting. Abdominal pain ramped up on Saturday after taking the laxative but got more severe yesterday into today. He also has had decreased appetite the last few days. No prior hx diverticulitis. Last colonoscopy was maybe 6-7 years ago and was wnl per pt. Family hx of irritable bowel (unsure what kind) in his mom, liver cancer in his mom, pancreatic cancer in his dad, and prostate cancer in his brother. Lives at home with his and step-son in a 2 story home. No recent falls. He is active. He denies back pain. While at [facility] he received zosyn at 17:30. CT abd/pelvis with contrast; "severe colitis involving sigmoid colon, likely with a small perforation. Underlying neoplasm suspected. 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 OSH labs; lipase 34, lactic acid 0.7, Alk phosp 82, AST 12, ALT 24, Cr 0.9, Na 136, K 3.5 Ca 8.8, Albumin 2.6, AG 8, WBC 15, hemoglobin 14.3, platelet 283 Discharge Plan Discharge Items Patient Disposition: Home - Self-Care Reason For Visit: SEVERE SIGMOID COLITIS WITHOUT PERFORATION Discharge Diagnosis: Sigmoid diverticulitis without perforation or abscess Activity: Resume your previous activity Non-emergency contact: Primary Care Provider Call non-emergency contact if: you have any medication questions and your symptoms worsen Follow-up/Referrals: Devonte Mendoza DO [Physician] - (Follow up colonoscopy after diverticulitis in 4-6 weeks) Selvin Helms MD [Surgeon] - Los Villalta PA-C [Primary Care Provider] - Diet: Low Fiber Addtl Attending Provider Instructions: You were admitted to [facility] from October 29 - November 01, 2025 due to abdominal pain. You were diagnosed with acute sigmoid diverticulitis treated with intravenous antibiotics. You will be discharged with Augmentin (antibiotic) on discharge for total 14 day course due to phlegmon seen on CT. Recommend follow up with gastroenterology for colonoscopy in 4-6 weeks. Recommend a high fiber diet on discharge. You were incidentally found to have 1.1 x 2.8cm tubular hypodensity and dilated pancreatic duct in the uncinate process of the pancreas on CT. Recommend pancreatic protocol CT as follow up once improved as an outpatient. Possibly this represent a stone although lipase, liver function tests are normal and you have clinically improved therefore low suspicion this was causing any of your acute symptoms. Lumbar spine MRI was also concerning for possible discitis however you have no symptoms or signs to suggest this and blood culture at [facility] are preliminary negative at 48 hours therefore do not suspect you have this. Recommend follow up with orthopedic spine as needed only if you back pain is getting worse. Suspect most likely this is degenerative joint disease in your spine rather than infection. Pending Studies at Discharge: No Stand-Alone Forms: My [facility] [employer], Smoking Cessation Medications and DC Order Prescriptions: New amoxicillin-pot clavulanate 875-125 mg tablet 1 tab PO BID 10 Days Qty: 20 0RF Continued famotidine 40 mg tablet 40 mg PO DAILY rosuvastatin 10 mg tablet 10 mg PO HS fluticasone propionate 50 mcg/actuation spray,suspension 1 spray intranasal HS escitalopram oxalate 10 mg tablet 10 mg PO DAILY Discharge Orders: Discharge Order (Routine); Ordered 11/01/25 Ordered By: Bobby Neri/Other Patient Handouts: Diverticulitis Dc, High Fiber Diet Dc Admission Data Admit Date/Time: 10/29/25 20:23 Attending Provider: Bobby Reeves Admit Provider: Oliva Sommers Primary Care Provider: Los Villalta Other Providers: Zain Hawk; Nahid Sampson; Selvin Helms; Francy Schultz; Lala Jackson; Bassem Johnson; Yariel Loza; Seamus Euceda; Bassem Schultz Other Interventions: Discharge Summary Assessment (RN) Last Done: 11/01/25 16:26 Hospital Stay Data Consultations 10/29/25 20:45 Consult General Surgery Routine 10/29/25 21:33 Consult Orthopedic Spine Surgery Routine Diagnostic Imagining Performed 10/29/25 21:12 CT angio chest PE protocol Routine 10/31/25 10:51 CT Abdomen and Pelvis [CT abd pelvis wo con] Urgent 10/31/25 13:12 MRI Lumbar Spine [MR lumbar spine wo/w con] Urgent Pending Results Patient Have Any Pending Studies at Discharge: No Discharge Instructions Given to Patient (Per Discharging Provider) You were admitted to [facility] from October 29 - November 01, 2025 due to abdominal pain. You were diagnosed with acute sigmoid diverticulitis treated with intravenous antibiotics. You will be discharged with Augmentin (antibiotic) on discharge for total 14 day course due to phlegmon seen on CT. Recommend follow up with gastroenterology for colonoscopy in 4-6 weeks. Recommend a high fiber diet on discharge. You were incidentally found to have 1.1 x 2.8cm tubular hypodensity and dilated pancreatic duct in the uncinate process of the pancreas on CT. Recommend pancreatic protocol CT as follow up once improved as an outpatient. Possibly this represent a stone although lipase, liver function tests are normal and you have clinically improved therefore low suspicion this was causing any of your acute symptoms. Lumbar spine MRI was also concerning for possible discitis however you have no symptoms or signs to suggest this and blood culture at [facility] are preliminary negative at 48 hours therefore do not suspect you have this. Recommend follow up with orthopedic spine as needed only if you back pain is getting worse. Suspect most likely this is degenerative joint disease in your spine rather than infection. Coding Diagnoses Diverticulitis of colon with perforation K57.20 Colonic mass K63.89 Lesion of lumbar spine M89.9
[2025-11-01 16:28] VITALS: BP 159/96
[2025-11-01] MEDS ORDERED: ENOXAPARIN INJ 40 MG/0.4 ML SYR SQ SCH (21:00)
[2025-11-01] MEDS ORDERED: ROSUVASTATIN CALCIUM 10 MG TAB PO SCH (21:00)
== END 2025-11-01 17:32 | disposition home or self-care (01) | DRG 392 ==
LOC: SUATTDRO 20:23 → 2E 20:23